=== PATIENT | female | born 1965 ===

== ENCOUNTER 2020-06-29 07:39 | Outpatient (CLI) | payer BC, SELFPAY ==
[2020-07-01 13:04] LABS: SARS-CoV-2 RNA Undetected (Undetected); SARS-CoV-2 Specimen Source Nasopharynx
== END 2020-06-29 07:59 ==
PROVIDERS: Visit Provider Family Medicine
DX: Z11.59 Encounter for screening for other viral diseases (principal)
CPT/HCPCS: U0003